=== PATIENT | female | born 1970 | race American Indian/Alaskan Native ===

== ENCOUNTER 2017-06-07 09:15 | Outpatient (CLI) | payer BC ==
--- NOTE | 2017-06-07 11:02 | Mammography Report ---
Bilateral digital screening mammogram with CAD. Comparison study is dated March 18, 2016. Findings: The breast parenchyma is heterogeneously dense. There is a new round mass in the upper-outer quadrant of the left breast posteriorly. This measures 1 cm in diameter. There is no architectural distortion and no suspicious calcifications are seen. Impression: Left breast mass seen further evaluation. BI-RADS code: 0. Recommendation: Spot compression images and ultrasound.
== END 2017-06-07 09:16 | disposition home or self-care (01) ==
LOC: MAMMO 09:15
PROVIDERS: ATTEND Internal Medicine
DX: Z12.31 Encounter for screening mammogram for malignant neoplasm of breast (principal)
CPT/HCPCS: 77067; G0202

== ENCOUNTER 2017-06-22 10:48 | Outpatient (CLI) | payer BC ==
--- NOTE | 2017-06-22 11:46 | Mammography Report ---
Diagnostic left mammogram and targeted left breast ultrasound. History: Recall for left asymmetry. Findings: The spot compression images in both projections and the 90 degree view of the left breast confirm the presence of a circumscribed round mass in the posterior aspect of the upper-outer quadrant of the left breast. This measures approximately 1.1 cm in diameter. No additional focal findings are seen. Targeted ultrasound of this area demonstrates a 1.1 x 1.0 x 0.7 cm sonolucent mass which corresponds in size and location to the mammographic mass. There is increased through-transmission. Impression: 1.1 cm cyst, upper-outer quadrant of the left breast. BI-RADS code: 2. Recommendation: Annual screening.
== END 2017-06-22 10:49 | disposition home or self-care (01) ==
LOC: MAMMO 10:48
PROVIDERS: ATTEND Internal Medicine
DX: N60.02 Solitary cyst of left breast (principal)
CPT/HCPCS: 76642; G0206

== ENCOUNTER 2018-10-05 08:36 | Outpatient (CLI) | payer OTHER ==
--- NOTE | 2018-10-05 23:28 | Cat Scan Report ---
PROCEDURE: CT ABDOMEN PELVIS W CON TECHNIQUE: Computerized axial tomography of the abdomen and pelvis was performed after the IV inject ion of iodinated nonionic contrast. CT DOSE LENGTH PRODUCT: mGycm HISTORY: UNINTENTIONAL WEIGHT LOSS, EARLY SATIETY, LOWER AB PAIN COMPARISONS: None . FINDINGS: Liver, spleen, pancreas and adrenal glands are within normal limits. A 3 mm nonobstructive calculus i s noted in the midportion right kidney. A 7 mm cystic lesion is noted in the midpole right kidney. Th ere is no obstructive uropathy. Urinary bladder is empty. Aorta is of normal caliber. There is no melinda e fluid or free air. Gallbladder is unremarkable. Small bowel loops are within normal limits. Appendi x is normal. Mild degree of residual stool is identified. Vertebral height is normal. IMPRESSION: A 3 mm nonobstructive calculus right kidney A small cystic lesion of the right kidney appears to be a simple cyst. No acute intra-abdominal or pelvic pathology This document is electronically signed by Hector Rick MD., October 05 2018 11:25:54 PM ET
== END 2018-10-05 08:37 | disposition home or self-care (01) ==
LOC: CT 08:36
PROVIDERS: ATTEND Family Medicine
DX: N20.0 Calculus of kidney (principal); R63.4 Abnormal weight loss; R68.81 Early satiety
CPT/HCPCS: 74177; Q9967

== ENCOUNTER 2019-07-17 09:15 | Outpatient (CLI) | payer OTHER ==
--- NOTE | 2019-07-18 09:50 | Mammography Report ---
DIGITAL SCREENING MAMMOGRAM WITH CAD, 07/17/2019 INDICATION: Routine screening mammography. TECHNIQUE: Digital bilateral 2D mammography was obtained in the craniocaudal and mediolateral obliq ue projections. This examination was interpreted with the benefit of Computer-Aided Detection analysi s. COMPARISON: 06/08/2018 FINDINGS: Breast Density: The breasts are heterogeneously dense, which may obscure small masses. There is no evidence of dominant mass, suspicious calcifications or architectural distortion in eithe r breast. IMPRESSION: No mammographic evidence of malignancy. Follow up recommendation: Routine yearly BI-RADS Category 1: Negative. A "normal" or negative report should not discourage follow up or biopsy of a clinically significant f inding. A written summary of these findings will be mailed to the patient. The patient will be entered into a mammography reporting system which will generate a reminder letter for the patient's next appointmen t at the appropriate interval. The [employer] recommends yearly mammograms starting at age 40 and continuing as l daniel as a woman is in good health. Breast MRI is recommended for women with an approximate 20-25% or greater lifetime risk of breast cancer, including women with a strong family history of breast or ova jakob cancer or who have been treated for Hodgkin's disease. Signer Name: Uri Parish MD Signed: 07/18/2019 9:46 AM Workstation Name: [id number]
== END 2019-07-17 09:16 | disposition home or self-care (01) ==
LOC: MAMMO 09:15
PROVIDERS: ATTEND Family Medicine
DX: Z12.31 Encounter for screening mammogram for malignant neoplasm of breast (principal)
CPT/HCPCS: 77067

== ENCOUNTER 2020-10-16 11:51 | Outpatient (CLI) | payer OTHER ==
--- NOTE | 2020-10-16 14:41 | Mammography Report ---
DIGITAL SCREENING MAMMOGRAM WITH CAD, 10/16/2020 CLINICAL INFORMATION / INDICATION: Routine screening mammography. TECHNIQUE: Digital bilateral 2D mammography was obtained in the craniocaudal and mediolateral obliqu e projections. This examination was interpreted with the benefit of Computer-Aided Detection analysis . COMPARISON: 06/08/2018 FINDINGS: Breast Density: The breasts are extremely dense, which lowers the sensitivity of mammography. No dominant mass, suspicious calcifications, or architectural distortion in either breast. No interval change. IMPRESSION: No mammographic evidence of malignancy. Follow up recommendation: Routine yearly BI-RADS Category 1: Negative. A "normal" or negative report should not discourage follow up or biopsy of a clinically significant f inding. A written summary of these findings will be mailed to the patient. The patient will be entered into a mammography reporting system which will generate a reminder letter for the patient's next appointmen t at the appropriate interval. The [employer] recommends yearly mammograms starting at age 40 and continuing as l daniel as a woman is in good health. Breast MRI is recommended for women with an approximate 20-25% or greater lifetime risk of breast cancer, including women with a strong family history of breast or ova jakob cancer or who have been treated for Hodgkin's disease. Signer Name: Jennifer Mello MD Signed: 10/16/2020 2:37 PM Workstation Name: [id number]
== END 2020-10-16 11:52 | disposition home or self-care (01) ==
LOC: MAMMO 11:51
PROVIDERS: ATTEND Family Medicine
DX: Z12.31 Encounter for screening mammogram for malignant neoplasm of breast (principal)
CPT/HCPCS: 77067

== ENCOUNTER 2020-12-10 14:29 | Outpatient (CLI) | payer OTHER ==
--- NOTE | 2020-12-10 16:12 | Mammography Report ---
BILATERAL DIGITAL SCREENING MAMMOGRAM WITH CAD WITH TOMOSYNTHESIS HISTORY: Screening mammogram, family history of breast cancer. TECHNIQUE: Routine digital mammographic imaging performed. This examination was interpreted with anil vega benefit of Computer-aided Detection analysis. Tomosynthesis images were acquired and reviewed. COMPARISON: 10/16/2020, 07/17/2019, 06/08/2018. FINDINGS: Breast Density: very dense breast parenchymal pattern which lessens the sensitivity of the evaluation . Digital CC and MLO views demonstrate no mammographic evidence of malignancy. IMPRESSION: No mammographic evidence of malignancy. If the clinical examination remains stable, recommend bilate ral mammogram in approximately one year. BIRADS 1: Negative. FURTHER INFORMATION: According to the [employer], yearly mammograms are recommend ed starting at age 40 and continuing as long as a woman is in good health. Clinical Breast Exams shou ld be part of a periodic health exam-about every 3 years for women in their 20s and 30s and every yea r for women 40 and over. Breast self exam is an option for women starting in their 20s. Any breast ch jessica noted on a breast self exam should be reported promptly to the patient's healthcare provider. Br east MRI is recommended for women with an approximately 20-25% or greater lifetime risk of breast can cer, including women with a strong family history of breast or ovarian cancer and women who have been treated for Hodgkin's disease. A negative Mammography report should not discourage follow up or biopsy of a clinically significant f inding and/or abnormality. Dense breast tissue may obscure small neoplasms. The patient will be entered into a reminder system with a target due date for the next screening mamm ogram. Signer Name: Deangelo Serrano MD Signed: 12/10/2020 4:06 PM Workstation Name: [id number]
== END 2020-12-10 14:30 | disposition home or self-care (01) ==
LOC: SPVWC 14:29
PROVIDERS: ATTEND Family Medicine
DX: Z12.31 Encounter for screening mammogram for malignant neoplasm of breast (principal); N64.89 Other specified disorders of breast; Z80.3 Family history of malignant neoplasm of breast
CPT/HCPCS: 77063; 77067